=== PATIENT | female | born 1940 | race Caucasian/White ===

== ENCOUNTER → 2022-05-02 | Outpatient (CLI) | payer MEDICARE, OTHER | LOC: KOH-I 09:56 | DX: S93.325A Dislocation of tarsometatarsal joint of left foot, initial encounter (principal); M25.475 Effusion, left foot; S92.312A Displaced fracture of first metatarsal bone, left foot, initial encounter for closed fracture; S92.342A Displaced fracture of fourth metatarsal bone, left foot, initial encounter for closed fracture | CPT/HCPCS: 73700 ==

== ENCOUNTER → 2022-06-02 | Outpatient (CLI) | payer MEDICARE, OTHER | LOC: KOH-I 15:20 | DX: S92.902A Unspecified fracture of left foot, initial encounter for closed fracture (principal) | CPT/HCPCS: 73630 ==